=== PATIENT | male | born 1975 | race African-American/Black ===

== ENCOUNTER 2024-10-12 13:36 | Inpatient (IN) | payer OTHER ==
[2024-10-12 14:10] VITALS: BMI 25.1
[2024-10-12] MEDS ORDERED: ACETAMINOPHEN 325 MG TABLET (FP) PO PRN (14:45)
[2024-10-12] MEDS ORDERED: BISMUTH SUBSALICYLATE 524 MG/30 ML PO PRN (14:45)
[2024-10-12] MEDS ORDERED: MAGNESIUM HYDROX 2400MG/30ML ORAL SUSPENSION 30 ML CUP PO PRN (14:45)
[2024-10-12] MEDS ORDERED: POLYETHYLENE GLYCOL (HEALTHYLAX) 3350 17 GM PACKET PO PRN (14:45)
[2024-10-12] MEDS ORDERED: NALOXONE (NARCAN) HCL 4 MG/0.1 ML SPRAY NS PRN (14:45)
[2024-10-12] MEDS ORDERED: ONDANSETRON *ODT* 4 MG TABLET SL PRN (14:45)
[2024-10-12] MEDS ORDERED: MAG HYDROX/AL HYDROX/SIMETH 30 ML UNIT-DOSE CUP PO PRN (14:45)
[2024-10-12] MEDS ORDERED: guaiFENesin 600 MG TABLET.ER (FP) PO PRN (14:45)
[2024-10-12] MEDS ORDERED: NICOTINE POLACRILEX 2 MG GUM BUC PRN (14:45)
[2024-10-12] MEDS ORDERED: BENZONATATE 200 MG CAPSULE PO PRN (14:45)
[2024-10-12] MEDS ORDERED: NICOTINE POLACRILEX 2 MG LOZENGE BC PRN (14:45)
[2024-10-12] MEDS ORDERED: DICYCLOMINE HCL 10 MG CAPSULE PO PRN (14:45)
[2024-10-12] MEDS ORDERED: LOPERAMIDE HCL 2 MG CAPSULE PO PRN (14:45)
[2024-10-12] MEDS ORDERED: BENZOCAINE/MENTHOL (CHLORASEPTIC ) LOZENGE MM PRN (14:45)
[2024-10-12] MEDS: cloNIDine HCL 0.1 MG TABLET PO ONE (14:56)
[2024-10-12] MEDS ORDERED: methaDONE HCL 10 MG TABLET (FOR DETOX USE ONLY) PO ONE (17:00)
[2024-10-12] MEDS ORDERED: cloNIDine HCL 0.1 MG TABLET ONE (17:05)
[2024-10-12] MEDS: cloNIDine HCL 0.1 MG TABLET PO PRN (20:08)
[2024-10-12] MEDS: METHOCARBAMOL 500 MG TABLET PO PRN (20:08)
[2024-10-12] MEDS: amLODIPine BESYLATE 10 MG TABLET (FP) PO SCH (20:33)
[2024-10-12] MEDS: MELATONIN 5 MG TABLETS PO SCH (22:57)
[2024-10-12] MEDS: APIXABAN 5 MG TABLET PO SCH (22:57)
[2024-10-12] MEDS: THIAMINE 100 MG TABLET PO SCH (22:57)
[2024-10-13] MEDS: PRENATAL VITAMINS W/ FOLIC ACID TABLET (FP) PO SCH (10:09)
[2024-10-13 11:30] LABS: HEMOGLOBIN 14.9 g/dL (13.7-17.5); MCHC 32.4 g/dl (32.3-36.5); MEAN CELL VOLUME 94.1 fl (79.0-92.2); MEAN PLT VOLUME 9.5 fl (9.4-12.4); PLATELET COUNT 393 x10^3/uL (163-337); RDW 13.2 % (12.2-16.1)
[2024-10-13 11:32] LABS: POTASSIUM 4.1 mmol/L (3.5-5.1)
[2024-10-13 11:35] LABS: ALBUMIN 3.5 g/dl (3.4-5.0); BLOOD UREA NITROGEN 4.8 mg/dL (7-18); CALCIUM 9.5 mg/dL (8.5-10.1)
[2024-10-13 11:38] LABS: CREATININE 0.8 mg/dL (0.55-1.3)
[2024-10-13 11:39] LABS: BILIRUBIN,TOTAL 0.5 mg/dL (0.2-1)
[2024-10-13 11:40] LABS: TOT PROT 7.1 g/dl (6.4-8.2)
[2024-10-13] MEDS: hydrOXYzine PAMOATE 25 MG CAPSULE (FP) PO PRN (22:27)
[2024-10-14] MEDS: methaDONE HCL 10 MG TABLET (FOR DETOX USE ONLY) PO ONE (10:12)
[2024-10-14] MEDS: LOSARTAN POTASSIUM 25 MG TABLET PO SCH (10:52)
[2024-10-14] MEDS: SUVOREXANT 10 MG TABLET PO PRN (22:00)
[2024-10-15] MEDS: cloNIDine HCL 0.1 MG TABLET PO PRN (17:11)
[2024-10-16] MEDS: methaDONE HCL 10 MG TABLET (FOR DETOX USE ONLY) PO ONE (09:32)
[2024-10-17 06:37] VITALS: BP 143/87; PULSE 74; RESP 18; TEMP 97.7
== END 2024-10-17 09:11 | disposition other institution (70) | DRG 773 ==
LOC: YASAS 13:36 → Y6N 16:27
PROVIDERS: ADMIT Allergy & Immunology; ATTEND Family Medicine Addiction Medicine
PROC: HZ2ZZZZ Detoxification Services for Substance Abuse Treatment (ICD-10-PCS; principal; 2024-10-12)
DX: F11.23 Opioid dependence with withdrawal (principal); F17.210 Nicotine dependence, cigarettes, uncomplicated; F14.20 Cocaine dependence, uncomplicated; F19.280 Other psychoactive substance dependence with psychoactive substance-induced anxiety disorder; F19.282 Other psychoactive substance dependence with psychoactive substance-induced sleep disorder; F19.24 Other psychoactive substance dependence with psychoactive substance-induced mood disorder; I10 Essential (primary) hypertension; Z86.718 Personal history of other venous thrombosis and embolism; Z79.01 Long term (current) use of anticoagulants
CPT/HCPCS: 36415; 71045-TC-FY; 80053; 80305; 80307; 85027; 86780; 93005; 93010